=== PATIENT | female | born 1950 | race Caucasian/White ===

== ENCOUNTER 2025-05-07 07:35 | Day surgery (SDC) | payer MEDICARE, OTHER ==
[2025-05-07] MEDS: Lactated Ringers 1,000 ML IV SCH (08:00)
[2025-05-07] MEDS ORDERED: propofoL 500 MG/50 ML 50 ML ONE (08:09)
[2025-05-07] MEDS ORDERED: Propofol 200 MG/20 ML SDV ONE ×2 (09:03→09:17)
[2025-05-07] MEDS ORDERED: Lactated Ringers 1,000 ML IV SCH (09:45)
[2025-05-07 10:15] VITALS: BP 132/66; PULSE 60
== END 2025-05-07 11:00 | disposition home or self-care (01) ==
LOC: MW.SDS 07:35
PROVIDERS: ATTEND Surgery
DX: K22.70 Barrett's esophagus without dysplasia (principal); K31.89 Other diseases of stomach and duodenum; K20.0 Eosinophilic esophagitis; K21.9 Gastro-esophageal reflux disease without esophagitis; K29.50 Unspecified chronic gastritis without bleeding; K57.30 Diverticulosis of large intestine without perforation or abscess without bleeding; E11.9 Type 2 diabetes mellitus without complications; I10 Essential (primary) hypertension; E03.9 Hypothyroidism, unspecified; R19.4 Change in bowel habit; Z88.8 Allergy status to other drugs, medicaments and biological substances; Z88.2 Allergy status to sulfonamides; Z88.1 Allergy status to other antibiotic agents; Z79.01 Long term (current) use of anticoagulants; Z79.84 Long term (current) use of oral hypoglycemic drugs; Z79.899 Other long term (current) drug therapy; Z79.890 Hormone replacement therapy
CPT/HCPCS: 43239; 45378; J2003; J2704; J7120; 88305